=== PATIENT | male | born 1945 | race American Indian/Alaskan Native ===

== ENCOUNTER 2017-10-05 12:19 | Inpatient (IN) | payer MEDICARE ==
--- NOTE | 2017-10-05 14:45 | C.PDOC ---
History Of Present Illness 72-year-old male, presents to the emergency department accompanied by , with complaints of worsening baseline mental status x2 years. states she does not feel safe with patient at home and can no longer care for him. Patient is unable to perform everyday activities, such as brushing his teeth or taking a bath. She reports that he stands over her while she is trying to sleep at night, and is breaking things at home. Patient is otherwise well with no known medical history. Chief Complaint (Nursing): Altered Mental Status History Per: Family History/Exam Limitations: Clinical Condition Onset/Duration Of Symptoms: Days Current Symptoms Are (Timing): Worse Past Medical History Reviewed: Historical Data, Nursing Documentation, Vital Signs Vital Signs: Last Vital Signs Temp 97.5 F L 10/05/17 14:18 Pulse 89 10/05/17 14:18 Resp 16 10/05/17 14:18 BP 127/77 10/05/17 14:18 Pulse Ox 98 10/05/17 15:57 Family History: States: No Known Family Hx - Social History Hx Alcohol Use: No Hx Substance Use: No - Immunization History Hx Tetanus Toxoid Vaccination: No Hx Influenza Vaccination: No Hx Pneumococcal Vaccination: No Review Of Systems Review Of Systems: ROS cannot be obtained secondary to pt's inabilty to answer questions. Physical Exam - Physical Exam Appears: Non-toxic, No Acute Distress, Other (Poor attention span, flat affect) Skin: Warm, Dry, No Rash Head: Atraumatic, Normacephalic Eye(s): bilateral: Normal Inspection Neck: Normal ROM Cardiovascular: Rhythm Regular, No Murmur Respiratory: Normal Breath Sounds, No Accessory Muscle Use Extremity: Normal ROM Neurological/Psych: Other (Oriented to person) ED Course And Treatment - Laboratory Results Result Diagrams: 10/05/17 15:03 10/05/17 15:03 ECG: Interpreted By Me, Viewed By Me ECG Interpretation: Normal Interpretation Of ECG: Normal sinus rthythm. Normal intervals. Minimal voltage criteria for LVH. Rate From EC O2 Sat by Pulse Oximetry: 98 (RA) Pulse Ox Interpretation: Normal Disposition - Disposition Disposition: HOSPITALIZED Disposition Time: 18:50 Condition: FAIR - Clinical Impression Clinical Impression: Dementia - Scribe Statement The provider has reviewed the documentation as recorded by the Scribe (Herlinda Roberts) All medical record entries made by the Scribe were at my direction and personally dictated by me. I have reviewed the chart and agree that the record accurately reflects my personal performance of the history, physical exam, medical decision making, and the department course for this patient. I have also personally directed, reviewed, and agree with the discharge instructions and disposition.
[2017-10-05 15:16] LABS: BASO # 0.1 K/uL (0.0-0.2); EOS # 0.1 K/uL (0.0-0.7); EOS % 1.1 % (0.0-4.0); HEMOGLOBIN 11.3 g/dL (12.0-18.0); LYMPH # 1.6 K/uL (1.0-4.3); LYMPH % 27.2 % (20.0-40.0); MEAN CELL VOLUME 73.9 fL (80.0-94.0); MEAN CORPUSCULAR HEMOGLOBIN 23.5 pg (27.0-31.0); MEAN CORPUSCULAR HGB CONC 31.8 g/dL (33.0-37.0); MEAN PLATELET VOLUME 8.7 fL (7.2-11.7); MONO # 0.5 K/uL (0.0-0.8); MONO % 7.8 % (0.0-10.0); NEUT # 3.7 K/uL (1.8-7.0); NEUT % 62.9 % (50.0-75.0); RBC 4.82 Mil/uL (4.40-5.90); RED CELL DISTRIBUTION WIDTH 15.9 % (11.5-14.5); WHITE BLOOD COUNT 5.9 K/uL (4.8-10.8)
--- NOTE | 2017-10-05 15:26 | RAD ---
HISTORY: Sepsis Patient COMPARISON: No prior. FINDINGS: LUNGS: No active pulmonary disease. PLEURA: No significant pleural effusion identified, no pneumothorax apparent. CARDIOVASCULAR: No radiographic findings to suggest acute or significant cardiovascular disease. OSSEOUS STRUCTURES: No significant abnormalities. VISUALIZED UPPER ABDOMEN: Normal. OTHER FINDINGS: None. IMPRESSION: No active disease.
[2017-10-05 15:33] LABS: ALB/GLOB RATIO 1.2 (1.0-2.1); ALBUMIN 4.4 g/dL (3.5-5.0); ALT/SGPT 18 U/L (21-72); AST/SGOT 17 U/L (17-59); BLOOD UREA NITROGEN 14 mg/dL (9-20); CALCIUM 9.1 mg/dl (8.6-10.4); GFR AFRICAN-AMERICAN > 60; GFR NON-AFRICAN AMERICAN > 60
--- NOTE | 2017-10-05 16:08 | CT ---
PROCEDURE: CT HEAD WITHOUT CONTRAST. HISTORY: altered mental status COMPARISON: None available. TECHNIQUE: Axial computed tomography images were obtained through the head/brain without intravenous contrast. Radiation dose: Total exam DLP = 960.86 mGy-cm. This CT exam was performed using one or more of the following dose reduction techniques: Automated exposure control, adjustment of the mA and/or kV according to patient size, and/or use of iterative reconstruction technique. FINDINGS: Examination limited by streak artifact. HEMORRHAGE: No intracranial hemorrhage. BRAIN: Diffuse atrophy with prominence of the ventricles and sulci noted. No mass effect or edema. Dense intracranial atherosclerotic calcifications. Appearance of the left MCA artery may be artifactual due to patient obliquity however dense MCA due to thrombus cannot be entirely excluded. Evidence of encephalomalacia within the right middle cranial fossa. Chronic appearing lacunar infarct, right basal ganglia. Scattered periventricular and subcortical white matter hypodensities, which are nonspecific, but often seen with chronic microvascular ischemic disease. Please note that MRI with diffusion imaging is more sensitive in the detection of acute ischemic event. VENTRICLES: No hydrocephalus. CALVARIUM: Unremarkable. PARANASAL SINUSES: Unremarkable as visualized. No significant inflammatory changes. MASTOID AIR CELLS: Unremarkable as visualized. No inflammatory changes. OTHER FINDINGS: Partial opacification of the right external auditory canal, likely cerumen. IMPRESSION: Appearance of the left MCA artery may be artifactual due to patient obliquity however dense MCA due to thrombus cannot be entirely excluded. Correlate clinically to exclude possibility of cerebral ischemia/stroke. Generalized atrophy. Nonspecific white matter changes. Evidence of encephalomalacia within the right middle cranial fossa. Chronic appearing small lacunar infarct, right basal ganglia. Examination limited by streak artifact. Findings discussed with Dr. Busch on 10/05/17 at 402pm.
[2017-10-06 10:55] LABS: BASO # 0.1 K/uL (0.0-0.2); BASO % 0.9 % (0.0-2.0); EOS # 0.1 K/uL (0.0-0.7); EOS % 1.5 % (0.0-4.0); HEMOGLOBIN 12.1 g/dL (12.0-18.0); LYMPH # 1.8 K/uL (1.0-4.3); LYMPH % 29.9 % (20.0-40.0); MEAN CELL VOLUME 73.2 fL (80.0-94.0); MEAN CORPUSCULAR HEMOGLOBIN 23.8 pg (27.0-31.0); MEAN CORPUSCULAR HGB CONC 32.6 g/dL (33.0-37.0); MEAN PLATELET VOLUME 9.1 fL (7.2-11.7); MONO # 0.5 K/uL (0.0-0.8); MONO % 7.7 % (0.0-10.0); NEUT # 3.6 K/uL (1.8-7.0); RBC 5.07 Mil/uL (4.40-5.90); RED CELL DISTRIBUTION WIDTH 15.4 % (11.5-14.5)
[2017-10-06 11:14] LABS: ALB/GLOB RATIO 1.3 (1.0-2.1); ALBUMIN 4.3 g/dL (3.5-5.0); ALT/SGPT 9 U/L (21-72); AST/SGOT 19 U/L (17-59); BLOOD UREA NITROGEN 11 mg/dL (9-20); CALCIUM 9.2 mg/dl (8.6-10.4); GFR AFRICAN-AMERICAN > 60; GFR NON-AFRICAN AMERICAN > 60
[2017-10-06 13:22] LABS: T4 5.96 ug/dL (5.5-11.0)
--- NOTE | 2017-10-06 14:07 | CARD ---
APPROVED REPORT EKG Measurement Heart [id number] <Conclusion> Normal sinus rhythm Minimal voltage criteria for LVH, may be normal variant Borderline ECG
--- NOTE | 2017-10-06 15:24 | CP.PCM.PN ---
Subjective - Date & Time of Evaluation Date of Evaluation: 10/06/17 Time of Evaluation: 07:00 - Subjective Subjective: PGY 2 medicine progress note for Dr. Frausto: Patient was seen and examined at bedside this morning. Patient was walking around in room in [facility]. Per the CP in the room the patient has been pleasant but has been trying to walk out of the room. Ped ED note: 72-year-old male, presents to the emergency department accompanied by , with complaints of worsening baseline mental status x2 years. states she does not feel safe with patient at home and can no longer care for him. Patient is unable to perform everyday activities, such as brushing his teeth or taking a bath. She reports that he stands over her while she is trying to sleep at night, and is breaking things at home. Patient is otherwise well with no known medical history. Objective - Vital Signs/Intake and Output Vital Signs (last 24 hours): Temp Pulse Resp BP Pulse Ox 98.5 F 76 20 138/79 100 10/06/17 07:15 10/06/17 07:15 10/06/17 07:15 10/06/17 07:15 10/06/17 07:15 Intake and Output: 10/06/17 10/06/17 06:59 18:59 Intake Total 100 Balance 100 - Medications Medications: Current Medications Donepezil HCl (Aricept) 5 mg PO HS [facility] Lorazepam (Ativan) 1 mg PO Q6H PRN PRN Reason: Agitation Memantine (Namenda) 5 mg PO BID [facility] Pneumococcal Polyvalent Vaccine (Pneumovax 23 Vaccine) 0.5 ml IM .ONCE ONE Stop: 10/08/17 14:01 - Labs Labs: 10/06/17 10:41 10/06/17 10:41 - Constitutional Appears: Non-toxic, No Acute Distress - Head Exam Head Exam: ATRAUMATIC, NORMAL INSPECTION - Eye Exam Eye Exam: EOMI Pupil Exam: NORMAL ACCOMODATION - ENT Exam ENT Exam: Mucous Membranes Moist - Respiratory Exam Respiratory Exam: Clear to Ausculation Bilateral, NORMAL BREATHING PATTERN. absent: Respiratory Distress - Cardiovascular Exam Cardiovascular Exam: REGULAR RHYTHM, +S1, +S2 - GI/Abdominal Exam GI & Abdominal Exam: Soft, Normal Bowel Sounds. absent: Distended, Firm, Guarding, Tenderness - Extremities Exam Extremities Exam: Normal Inspection. absent: Calf Tenderness, Pedal Edema - Back Exam Back Exam: NORMAL INSPECTION. absent: CVA tenderness (L), CVA tenderness (R), paraspinal tenderness - Neurological Exam Neurological Exam: Alert, Awake, CN II-XII Intact, Normal Gait. absent: Oriented x3 Neuro motor strength exam: Left Upper Extremity: 5, Right Upper Extremity: 5, Left Lower Extremity: 5, Right Lower Extremity: 5 - Psychiatric Exam Psychiatric exam: Normal Affect, Normal Mood - Skin Skin Exam: Dry, Intact, Normal Color, Warm Assessment and Plan - Assessment and Plan (Free Text) Assessment: Dementia likely f/u labs, UA, UDS, RPR, HIV, TSH, Ammonia Dr. Maryann Tavera consulted, help appreciated Case managemnet for placement Patient apears well but is not oriented Aricept 5mg PO HS Namenda 5mg PO BID Ativan 1mg PO Q6 prn agitated MRI not able to obtain - patient unable to follow commands and sit still CT head - generalized atrophy, non specific white matter changes, chronic appearing small lacunar infarct R basal ganglia. Prophylactic Measures Lovenox 40mg SC daily [facility] Heart Healthy diet PT/OT eval
--- NOTE | 2017-10-07 00:09 | CON ---
DATE: NEUROLOGY CONSULTATION REASON FOR CONSULTATION: Altered mental status, HISTORY OF PRESENTING ILLNESS: The patient is a 72-year-old male, who was brought to the emergency room by his as the patient is getting worsening of his baseline dementia. It is getting worse over the last 2 years. As per the patient's , she no longer can take care of him. He is unable to perform his daily activities. He cannot take a bath or brush teeth by himself. He has been breaking things at home. The patient is unable to give a history. History is mainly from the chart. The patient does not know why he is here. He does not think anything is going on with him. REVIEW OF SYSTEMS: He denies any headache, dizziness, chest pain, shortness of breath, abdominal pain, constipation, diarrhea, dysuria, cough or sputum production. PAST MEDICAL HISTORY: Includes dementia. MEDICATIONS: At home are none. ALLERGIES: NO KNOWN DRUG ALLERGIES. SOCIAL HISTORY: The patient denies smoking, use of alcohol, or illicit drugs. FAMILY HISTORY: None. PHYSICAL EXAMINATION GENERAL: The patient is an elderly male, sitting on the bed, in no acute distress. VITAL SIGNS: Blood pressure is 138/79, heart rate is 76 per minute, breathing at the rate of 16 per minute, temperature is 98.5 degrees Fahrenheit. HEENT: Head is normocephalic, atraumatic. NECK: Supple. There are no carotid bruits. LUNGS: Clear. CARDIOVASCULAR SYSTEM: S1 and S2 are audible. No murmurs. ABDOMEN: Soft and nontender. Bowel sounds present. NEUROLOGY: Mental status, the patient is awake and alert. He does not know the month, date or year. He thinks he is at his home. He follows simple commands. Cranial nerve examination: Pupils are 3 mm, bilaterally reactive to light. Visual pollack are full. Extraocular movements are intact. There is no facial asymmetry. Palate is upgoing bilaterally and tongue is midline. Motor examination: Tone is normal. Power is 5/5 bilaterally in all extremities. Reflexes are +1 and symmetrical. Plantars are downgoing bilaterally. Cerebellar examination: [id number] shows no dysmetria. Gait is narrow based. LABORATORY DATA: Labs reviewed, shows WBC of 6.0, hemoglobin 12.1, hematocrit 37.1, and platelets of 271. Sodium is 137, potassium 3.8, chloride of 97, carbon dioxide content of 31, BUN of 11, creatinine of 0.8, and glucose of 129. He had a CT scan of the head done, which shows nonspecific white matter changes, evidence of encephalomalacia within the right middle cranial fossa with chronic appearing small lacunar infarct in the right basal ganglia. IMPRESSION: Altered mental status, which appears to be secondary to worsening dementia of Alzheimer's type. RECOMMENDATIONS: 1. The patient to have an electroencephalogram. 2. The patient to have vitamin B12, T4, and TSH levels done. 3. The patient to have urinalysis to look for any urinary tract infection. 4. The patient will be started on Aricept 5 mg once a day . 5. The patient also to be started on Namenda 5 mg twice a day. 6. Please continue supportive care and other treatment. Thank you for the opportunity to participate in the care of this patient. Nino Tavera MD
[2017-10-07] MEDS ORDERED: Enoxaparin 40 mg Syringe SC SCH (10:00)
[2017-10-07] MEDS: Enoxaparin 40 mg Syringe SC SCH (10:47)
--- NOTE | 2017-10-07 11:13 | CP.PCM.PN ---
Subjective - Date & Time of Evaluation Date of Evaluation: 10/07/17 Time of Evaluation: 07:00 - Subjective Subjective: PGY 2 medicine progress note for Dr. Frausto: Patient was seen and examined at bedside this morning. Patient was walking around in room in circles. Patient has no complaints at this time. He is not oriented. Per the CP and nursing no acute events overnight. Objective - Vital Signs/Intake and Output Vital Signs (last 24 hours): Temp Pulse Resp BP Pulse Ox 98.0 F 75 20 146/85 94 L 10/07/17 08:14 10/07/17 08:14 10/07/17 08:14 10/07/17 08:14 10/07/17 08:14 Intake and Output: 10/07/17 10/07/17 06:59 18:59 Intake Total 120 Balance 120 - Medications Medications: Current Medications Donepezil HCl (Aricept) 5 mg PO HS [facility] Last Admin: 10/06/17 22:11 Dose: 5 mg Enoxaparin Sodium (Lovenox) 40 mg SC DAILY [facility] Last Admin: 10/07/17 10:47 Dose: 40 mg Lorazepam (Ativan) 1 mg PO Q6H PRN PRN Reason: Agitation Memantine (Namenda) 5 mg PO BID [facility] Last Admin: 10/07/17 10:47 Dose: 5 mg Pneumococcal Polyvalent Vaccine (Pneumovax 23 Vaccine) 0.5 ml IM .ONCE ONE Stop: 10/08/17 14:01 - Labs Labs: 10/06/17 10:41 10/06/17 10:41 - Constitutional Appears: Non-toxic, No Acute Distress - Head Exam Head Exam: ATRAUMATIC, NORMAL INSPECTION - Eye Exam Eye Exam: EOMI, PERRL Pupil Exam: NORMAL ACCOMODATION - ENT Exam ENT Exam: Mucous Membranes Moist - Respiratory Exam Respiratory Exam: Clear to Ausculation Bilateral, NORMAL BREATHING PATTERN. absent: Respiratory Distress - Cardiovascular Exam Cardiovascular Exam: REGULAR RHYTHM, +S1, +S2 - GI/Abdominal Exam GI & Abdominal Exam: Soft, Normal Bowel Sounds. absent: Distended, Firm, Guarding, Tenderness - Extremities Exam Extremities Exam: Normal Inspection. absent: Calf Tenderness - Back Exam Back Exam: NORMAL INSPECTION. absent: CVA tenderness (L), CVA tenderness (R), paraspinal tenderness - Neurological Exam Neurological Exam: Alert, Awake, CN II-XII Intact, Normal Gait. absent: Oriented x3 Neuro motor strength exam: Left Upper Extremity: 5, Right Upper Extremity: 5, Left Lower Extremity: 5, Right Lower Extremity: 5 - Psychiatric Exam Psychiatric exam: Normal Affect, Normal Mood - Skin Skin Exam: Dry, Intact, Normal Color, Warm Assessment and Plan - Assessment and Plan (Free Text) Assessment: Dementia Dr. Maryann Tavera consulted, help appreciated Case management for placement Patient appears well but is not oriented Aricept 5mg PO HS Namenda 5mg PO BID Ativan 1mg PO Q6 prn agitated MRI not able to obtain - patient unable to follow commands and sit still CT head - generalized atrophy, non specific white matter changes, chronic appearing small lacunar infarct R basal ganglia. TSH wnl f/u UA, UDS, RPR, HIV, Ammonia B12 deficiency 1000mg IM x 1 dose administered on 10/07 Prophylactic Measures Lovenox 40mg SC daily [facility] Heart Healthy diet PT/OT eval Dispo: Patient medically clear. 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 Discussed with Dr. Frausto. All management per Dr. Frausto
[2017-10-07 17:31] LABS: SQUAMOUS EPITHIAL 2 /hpf (0-5); URINE BILIRUBIN NEGATIVE (NEGATIVE); URINE BLOOD 1+ (NEGATIVE); URINE CLARITY Clear (Clear); URINE COLOR Yellow (YELLOW); URINE GLUCOSE (UA) 3+ mg/dL (Normal); URINE LEUKOCYTE ESTERASE NEG Leu/uL (Negative); URINE NITRATE NEGATIVE (NEGATIVE); URINE PROTEIN NEGATIVE (NEGATIVE)
[2017-10-07 18:13] LABS: BARBITURATES, UR NEGATIVE (NEGATIVE); BENZODIAZEPINES, UR NEGATIVE (NEGATIVE); OPIATES, UR NEGATIVE (NEGATIVE); PHENCYCLIDINE, UR NEGATIVE (NEGATIVE)
--- NOTE | 2017-10-07 23:22 | PN ---
DATE: NEUROLOGY PROGRESS NOTE SUBJECTIVE: The patient is lying on the bed in no acute distress. Denies having any headache or dizziness. PHYSICAL EXAMINATION VITAL SIGNS: His blood pressure is 115/73, heart rate is 75 per minute, breathing at the rate of 18 per minute, temperature is 98.3 degree Fahrenheit. HEENT: Head is normocephalic and atraumatic. NECK: Supple. There are no carotid bruits. CARDIOPULMONARY: S1, S2 audible. No murmurs. LUNGS: Clear. ABDOMEN: Soft and nontender. Bowel sounds are present. NEUROLOGY: Mental Status: The patient is awake, alert, and oriented to himself. He does not know where he is, does not know the year or month. He follows simple commands. Cranial Nerve Examination: Pupils are 3 mm bilaterally reactive to light. Visual pollack are full. Extraocular movements are intact. There is no facial asymmetry. Palate is upgoing bilaterally and tongue is midline. Motor Examination: Tone is normal. Power is 5/5 bilaterally in all extremities. Reflex is 1+ and symmetrical. Plantars are downgoing bilaterally. Cerebellar Examination: [id number] shows no dysmetria. LABORATORY DATA: Labs reviewed. His T4 and TSH are within normal limits. His vitamin B12 level is 381. EEG is abnormal consistent with mild bilateral cerebral dysfunction. IMPRESSION: Dementia of Alzheimer's type. RECOMMENDATIONS: 1. The patient to be continued on Aricept. 2. The patient also to be continued on Namenda. 3. The patient is tolerating both the medications very well. 4. The patient may require halfway placement as apparently it is hard for his to care for the patient. 5. The patient's dose of Aricept and Namenda will need to be increased after about 4 weeks. Thank you for the opportunity of participating in the care of this patient. Nino Tavera MD cc:
[2017-10-08] MEDS: Enoxaparin 40 mg Syringe SC SCH (09:35)
--- NOTE | 2017-10-08 10:32 | HP ---
HISTORY OF PRESENT ILLNESS: Mr. Flanagan was admitted to the hospital with chief complaint of altered mental status, weakness, fatigue, tiredness, the patient states he has been very difficult to move at home. He has a history of dementia constantly. PHYSICAL EXAMINATION: GENERAL: The patient is awake, but not oriented to time and place. Appropriate response to questioning. HEENT: Within normal limits. NECK: Supple. CHEST: Symmetrical. HEART: Regular. ABDOMEN: Soft. EXTREMITIES: No edema. IMPRESSION: The patient suffers from advanced dementia, cerebrovascular accident. PLAN: The patient to get bed rest, supportive care. Janey Frausto MD
[2017-10-08] MEDS ORDERED: Pneumococcal 23-Valent Vaccine IM ONE (14:00)
--- NOTE | 2017-10-08 19:39 | CP.PCM.PN ---
Subjective - Date & Time of Evaluation Date of Evaluation: 10/09/17 Time of Evaluation: 10:34 - Subjective Subjective: PGY 2 Medicine Note- Dr. Frausto's service Patient seen and examined in no apparent distress. Patient being monitored by clinical partner. No apparent events overnight. Patient remains minimally verbal. Cannot assess ROS at this time due to limited speech. Objective - Vital Signs/Intake and Output Vital Signs (last 24 hours): Temp Pulse Resp BP Pulse Ox 98.7 F 86 20 131/81 100 10/08/17 15:00 10/08/17 15:00 10/08/17 15:00 10/08/17 15:00 10/08/17 15:00 Intake and Output: 10/08/17 10/09/17 18:59 06:59 Intake Total 120 Balance 120 - Medications Medications: Current Medications Donepezil HCl (Aricept) 5 mg PO HS [facility] Last Admin: 10/07/17 21:36 Dose: 5 mg Enoxaparin Sodium (Lovenox) 40 mg SC DAILY [facility] Last Admin: 10/08/17 09:35 Dose: 40 mg Lorazepam (Ativan) 1 mg PO Q6H PRN PRN Reason: Agitation Memantine (Namenda) 5 mg PO BID [facility] Last Admin: 10/08/17 18:03 Dose: 5 mg - Labs Labs: 10/06/17 10:41 10/06/17 10:41 - Constitutional Appears: Non-toxic, No Acute Distress - Head Exam Head Exam: ATRAUMATIC, NORMAL INSPECTION - Eye Exam Eye Exam: EOMI, Normal appearance Pupil Exam: NORMAL ACCOMODATION, PERRL - ENT Exam ENT Exam: Mucous Membranes Moist, Normal Exam - Neck Exam Neck Exam: Full ROM - Respiratory Exam Respiratory Exam: Clear to Ausculation Bilateral, NORMAL BREATHING PATTERN - Cardiovascular Exam Cardiovascular Exam: +S1, +S2 - GI/Abdominal Exam GI & Abdominal Exam: Soft, Normal Bowel Sounds - Extremities Exam Extremities Exam: Full ROM - Neurological Exam Neurological Exam: Awake - Psychiatric Exam Psychiatric exam: Flat Affect - Skin Skin Exam: Dry, Normal Color Assessment and Plan - Assessment and Plan (Free Text) Assessment: Dementia Dr. Maryann Tavera consulted, help appreciated- Recommendations for EEG and routine lab studies. Case management for placement Patient appears well but is not oriented Aricept 5mg PO HS Namenda 5mg PO BID Ativan 1mg PO Q6 prn agitated MRI not able to obtain - patient unable to follow commands and sit still for long periods of time. CT head - generalized atrophy, non specific white matter changes, chronic appearing small lacunar infarct R basal ganglia. TSH wnl UA with 2+ glucose and some blood noted, UDS negative, F/U RPR, HIV, Ammonia B12 deficiency 1000mg IM x 1 dose administered on 10/07 Prophylactic Measures Lovenox 40mg SC daily [facility] Heart Healthy diet PT/OT eval Dispo: Patient medically clear. Will need penitentiary placement which is still pending authorization. Discussed with Dr. Frausto. All management per Dr. Frausto
[2017-10-09] MEDS: Enoxaparin 40 mg Syringe SC SCH (09:40)
[2017-10-10] MEDS: Enoxaparin 40 mg Syringe SC SCH (10:08)
[2017-10-11 08:38] VITALS: O2SAT 98
[2017-10-11] MEDS: Enoxaparin 40 mg Syringe SC SCH (09:16)
--- NOTE | 2017-10-11 10:33 | CP.PCM.PN ---
Subjective - Date & Time of Evaluation Date of Evaluation: 10/11/17 Time of Evaluation: 07:05 - Subjective Subjective: PGY 2 Medicine Note- Dr. Frausto's service Patient seen and examined in no acute distress. No overnight events per nursing. Patient is AAOx1, only oriented to self. Patient remains minimally verbal and is a poor historian. No acute complaints at this time. Objective - Vital Signs/Intake and Output Vital Signs (last 24 hours): Temp Pulse Resp BP Pulse Ox 97.9 F 63 20 131/75 98 10/11/17 08:36 10/11/17 08:36 10/11/17 08:36 10/11/17 08:36 10/11/17 08:36 - Medications Medications: Current Medications Donepezil HCl (Aricept) [address] [facility] Last Admin: 10/10/17 22:22 Dose: 5 mg Enoxaparin Sodium (Lovenox) [address] [facility] Last Admin: 10/11/17 09:16 Dose: 40 mg Lorazepam (Ativan) 1 mg PO Q6H PRN PRN Reason: Agitation Memantine (Namenda) [address] [facility] Last Admin: 10/11/17 09:15 Dose: 5 mg - Labs Labs: 10/06/17 10:41 10/06/17 10:41 - Additional Findings Additional findings: - Constitutional Appears: Non-toxic, No Acute Distress - Head Exam Head Exam: ATRAUMATIC, NORMAL INSPECTION - Eye Exam Eye Exam: EOMI, Normal appearance Pupil Exam: NORMAL ACCOMODATION, PERRL - ENT Exam ENT Exam: Mucous Membranes Moist, Normal Exam - Neck Exam Neck Exam: Full ROM - Respiratory Exam Respiratory Exam: Clear to Ausculation Bilateral, NORMAL BREATHING PATTERN - Cardiovascular Exam Cardiovascular Exam: +S1, +S2 - GI/Abdominal Exam GI & Abdominal Exam: Soft, Normal Bowel Sounds - Extremities Exam Extremities Exam: Full ROM - Neurological Exam Neurological Exam: Awake - Psychiatric Exam Psychiatric exam: Flat Affect - Skin Skin Exam: Dry, Normal Color Assessment and Plan - Assessment and Plan (Free Text) Assessment: Dementia 10/11: Patient in no acute distress. At baseline. Continue to monitor. Dr. Maryann Tavera consulted, help appreciated- Recommendations for EEG and routine lab studies. Case management for placement Patient appears well but is not oriented Aricept 5mg PO HS Namenda 5mg PO BID Ativan 1mg PO Q6 prn agitated MRI not able to obtain - patient unable to follow commands and sit still for long periods of time. CT head - generalized atrophy, non specific white matter changes, chronic appearing small lacunar infarct R basal ganglia. TSH wnl UA with 2+ glucose and some blood noted, UDS negative, F/U RPR, HIV, Ammonia B12 deficiency 1000mg IM x 1 dose administered on 10/07 Prophylactic Measures Lovenox 40mg SC daily [facility] Heart Healthy diet PT/OT eval Dispo: Patient medically clear. Will need correction placement which is still pending authorization. Discussed with Dr. Frausto. All management per Dr. Frausto
--- NOTE | 2017-10-11 11:16 | EEG ---
DATE: 10/17/17 This is an EEG report. INTRODUCTION: This is a digitally recorded EEG monitoring using the standard EEG montages. BACKGROUND RHYTHM: The EEG shows a background activity of 7 Hz theta activity in parietooccipital region. The EEG activity is bilaterally symmetrical and synchronous. There is attenuation of the background activity on eye opening. No sleep recording was noted. A significant amount of myogenic artifact noticed in this EEG recording. ABNORMAL POTENTIALS: No spike, sharp waves, or focal slowing was seen. PHOTIC STIMULATION AND HYPERVENTILATION: Photic stimulation did not reveal any abnormality. Hyperventilation was not performed. IMPRESSION: Abnormal electroencephalogram. The above findings are consistent with mild bihemispheric cerebral dysfunction. No epileptiform activity seen in this electroencephalogram recording. Nino Tavera MD
[2017-10-11 16:43] VITALS: BP 130/72; PULSE 78; RESP 18; TEMP 98.7
--- NOTE | 2017-10-14 07:32 | DS ---
HOSPITAL COURSE: Mr. Flanagan admitted to the hospital with chief complaint of altered mental status, weakness and fatigue. The patient came to the emergency room, advised admission for CVA, the patient with severe dementia. Has been having difficulty time taking care from home. The patient getting bedrest, states ____ CAT scan of head. The patient went to MRI, though the patient unable to stay still. The patient received Ativan p.r.n. for agitation. Condition improved discharged to be followed up as outpatient. DIAGNOSES: Severe dementia, altered mental status. Janey Frausto MD
== END 2017-10-11 17:18 | disposition home or self-care (01) | DRG 57 ==
LOC: C.ER 12:19 → C.5S 16:47 → C.9E 16:47
PROVIDERS: ADMIT Internal Medicine Pulmonary Disease; ATTEND Internal Medicine Pulmonary Disease
DX: G30.9 Alzheimer's disease, unspecified (principal); G93.89 Other specified disorders of brain; F02.80 Dementia in other diseases classified elsewhere, unspecified severity, without behavioral disturbance, psychotic disturbance, mood disturbance, and anxiety; I69.398 Other sequelae of cerebral infarction